=== PATIENT | female | born 1985 | race African-American/Black ===

== ENCOUNTER 2016-08-18 16:18 | Emergency (ER) | payer OTHER ==
[~2016-08-18] VITALS: Ht 167.6 cm; Wt 52.2 kg
[2016-08-18 18:50] LABS: BASOPHIL % 0.2 % (0-2); PLATELET COUNT 216 x10^3mcL (130-400); RED CELL DISTRIBUTION WIDTH 13.4 % (11.5-14.5)
[2016-08-18 20:39] VITALS: BP 114/74
== END 2016-08-18 20:39 | disposition home or self-care (01) ==
LOC: ED 16:18
PROVIDERS: Emergency Medicine
DX: O03.9 Complete or unspecified spontaneous abortion without complication (principal); O46.91 Antepartum hemorrhage, unspecified, first trimester; Z88.2 Allergy status to sulfonamides; Z88.8 Allergy status to other drugs, medicaments and biological substances
CPT/HCPCS: Q0092

== ENCOUNTER 2016-12-23 09:54 | Emergency (ER) | payer OTHER ==
[~2016-12-23] VITALS: Ht 167.6 cm; Wt 53.5 kg
[2016-12-23 09:56] VITALS: BP 124/82
== END 2016-12-23 12:00 | disposition home or self-care (01) ==
LOC: ED 09:54
DX: T63.481A Toxic effect of venom of other arthropod, accidental (unintentional), initial encounter (principal); M79.89 Other specified soft tissue disorders; Y92.89 Other specified places as the place of occurrence of the external cause

== ENCOUNTER 2018-06-17 12:14 | Emergency (ER) | payer OTHER ==
[~2018-06-17] VITALS: Ht 167.6 cm; Wt 62.1 kg
[2018-06-17 12:22] VITALS: Ht 167.6 cm; Wt 62.1 kg
[2018-06-17 14:29] VITALS: BP 115/76
== END 2018-06-17 14:31 | disposition home or self-care (01) ==
LOC: ED 12:14
DX: K29.70 Gastritis, unspecified, without bleeding (principal); J06.9 Acute upper respiratory infection, unspecified
CPT/HCPCS: J1885; Q0092

== ENCOUNTER 2019-02-25 14:52 | Emergency (ER) | payer OTHER ==
[~2019-02-25] VITALS: Ht 167.6 cm; Wt 65.3 kg
[2019-02-25 15:04] VITALS: Ht 167.6 cm; Wt 65.3 kg
[2019-02-25 17:01] LABS: BASOPHIL % 0.6 % (0-2); PLATELET COUNT 272 x10^3mcL (130-400); RED CELL DISTRIBUTION WIDTH 13.8 % (11.5-14.5)
[2019-02-25 18:20] VITALS: BP 99/67
== END 2019-02-25 18:20 | disposition home or self-care (01) ==
LOC: ED 14:52
PROVIDERS: Emergency Medicine
DX: O20.9 Hemorrhage in early pregnancy, unspecified (principal); Z3A.01 Less than 8 weeks gestation of pregnancy; Z88.6 Allergy status to analgesic agent; Z88.8 Allergy status to other drugs, medicaments and biological substances; Z91.010 Allergy to peanuts
CPT/HCPCS: 36415